=== PATIENT | male | born 1975 | race African-American/Black ===

== ENCOUNTER 2024-01-14 21:22 | Emergency (ER) | payer SELFPAY ==
[~2024-01-14] VITALS: Ht 175.3 cm; Wt 76.0 kg
[2024-01-14 21:54] VITALS: TEMP 98.3
[2024-01-14 22:05] VITALS: BP 121/79; PULSE 82; RESP 18
[2024-01-14] MEDS: ACETAMINOPHEN 500 MG TABLET PO ONE (23:09)
[2024-01-14] MEDS ORDERED: ACET-3385 PO (23:26)
== END 2024-01-14 23:36 | disposition home or self-care (01) ==
LOC: EMS 21:22
DX: M79.672 Pain in left foot (principal); M79.671 Pain in right foot
CPT/HCPCS: 99282; Z7502; Z7610